=== PATIENT | male | born 1985 | race Caucasian/White ===

== ENCOUNTER 2017-07-26 21:08 | Emergency (ER) | payer SELFPAY ==
[~2017-07-26] VITALS: Ht 180.3 cm; Wt 84.0 kg
[2017-07-26 21:30] VITALS: BP 151/98
== END 2017-07-27 02:20 | disposition home or self-care (01) ==
LOC: ER 21:08
DX: S93.401A Sprain of unspecified ligament of right ankle, initial encounter (principal); M25.562 Pain in left knee; Z88.0 Allergy status to penicillin; X50.1XXA Overexertion from prolonged static or awkward postures, initial encounter; Y93.89 Activity, other specified; Y92.89 Other specified places as the place of occurrence of the external cause; Y99.8 Other external cause status
CPT/HCPCS: 73562; 73610; 99284

== ENCOUNTER 2017-11-26 15:10 | Emergency (ER) | payer SELFPAY ==
[~2017-11-26] VITALS: Ht 180.3 cm; Wt 80.0 kg
[2017-11-26] MEDS ORDERED: METHOCARBAMOL 500MG TABLET PO ONE (16:00)
[2017-11-26] MEDS ORDERED: ACETAMINOPHEN WITH CODEINE 300/30MG TABLET PO ONE (16:00)
[2017-11-26] MEDS ORDERED: KETOROLAC 60MG/2ML VIAL IM ONE (16:00)
[2017-11-26 17:30] VITALS: BP 132/89
== END 2017-11-26 17:31 | disposition home or self-care (01) ==
LOC: ER 15:19
DX: M47.26 Other spondylosis with radiculopathy, lumbar region (principal); M54.40 Lumbago with sciatica, unspecified side; Z88.0 Allergy status to penicillin; Y93.F2 Activity, caregiving, lifting
CPT/HCPCS: 72100; 96372; 99284; J1885